=== PATIENT | female | born 1985 | race Hispanic/Latino ===

== ENCOUNTER 2020-03-12 07:26 | Outpatient (CLI) | payer OTHER, SELFPAY ==
[2020-03-12 10:28] LABS: HIV 1/2 Ab P24 Ag Result Negative (Negative)
[2020-03-12 11:08] LABS: Vitamin D 25 Hydroxy 39.3 ng/mL
[2020-03-12 12:08] LABS: Hepatitis C Virus Antibody Negative (Negative)
== END 2020-03-12 07:27 | disposition home or self-care (01) ==
PROVIDERS: PCP Family Medicine; Visit Provider Student in an Organized Health Care Education/Training Program
DX: Z34.90 Encounter for supervision of normal pregnancy, unspecified, unspecified trimester (principal); Z3A.00 Weeks of gestation of pregnancy not specified
CPT/HCPCS: 36415; 82306; 86703; 86803; G0432

== ENCOUNTER 2020-03-20 14:56 | Outpatient (CLI) | payer OTHER, SELFPAY ==
[2020-03-20 16:21] LABS: Free T4 Free Thyroxine 0.97 ng/mL (0.78-2.19)
== END 2020-03-20 14:57 | disposition home or self-care (01) ==
LOC: ANHLAB 14:57
PROVIDERS: PCP Family Medicine; Visit Provider Student in an Organized Health Care Education/Training Program
DX: E03.9 Hypothyroidism, unspecified (principal); Z34.90 Encounter for supervision of normal pregnancy, unspecified, unspecified trimester; Z3A.00 Weeks of gestation of pregnancy not specified
CPT/HCPCS: 36415; 84439; 84443

== ENCOUNTER 2020-04-10 10:01 | Outpatient (CLI) | payer OTHER, SELFPAY ==
[2020-04-10 10:23] LABS: Basophils Percent Auto 0.2 % (0.2-1.2); Eosinophils Percent Auto 0.3 % (0-4.4); Hematocrit 38.3 % (37.0-47.0); Hemoglobin 13.1 g/dL (12.0-15.0); Immature Granulocyte Absolute 0.04 K/mm3 (0.00-0.031); Immature Granulocyte Percent A 0.4 % (0-0.5); Lymphocytes Absolute Auto 2.42 K/mm3 (0.9-3.2); Lymphocytes Percent Auto 23.5 % (18.3-44.2); Mean Corpuscular HGB Conc 34.2 g/dl (32-36); Mean Corpuscular Hemoglobin 31.6 pg (26-34); Mean Corpuscular Volume 92.5 fl (80-100); Mean Platelet Volume 9.5 fl (7.4-10.4); Monocytes Absolute Auto 0.8 K/mm3 (0.1-0.6); Monocytes Percent Auto 7.3 % (2.6-8.5); Neutrophils Percent Auto 68.3 % (45.5-73.1); Platelet Count Result 291 k/mm3 (150-375); Red Blood Count 4.14 M/mm3 (4.2-5.4); Red Cell Distribution Width 13.2 % (11.5-14.5); White Blood Count 10.3 K/mm3 (4.5-10.0)
== END 2020-04-10 10:02 | disposition home or self-care (01) ==
PROVIDERS: PCP Family Medicine; Visit Provider Student in an Organized Health Care Education/Training Program
DX: Z34.02 Encounter for supervision of normal first pregnancy, second trimester (principal); Z3A.00 Weeks of gestation of pregnancy not specified
CPT/HCPCS: 36415; 85025

== ENCOUNTER 2020-05-11 14:18 | Outpatient (CLI) | payer OTHER, SELFPAY | END 2020-05-11 14:19 | disposition home or self-care (01) | LOC: ANHCOVIDVC 14:18 | PROVIDERS: PCP Family Medicine | DX: Z23 Encounter for immunization (principal) | CPT/HCPCS: 0001A; 91300 ==

== ENCOUNTER 2020-05-30 14:15 | Outpatient (CLI) | payer OTHER, SELFPAY ==
[2020-05-30 14:54] LABS: Basophils Percent Auto 0.2 % (0.2-1.2); Eosinophils Percent Auto 0.2 % (0-4.4); Hematocrit 39.7 % (37.0-47.0); Hemoglobin 13.3 g/dL (12.0-15.0); Immature Granulocyte Absolute 0.03 K/mm3 (0.00-0.031); Immature Granulocyte Percent A 0.3 % (0-0.5); Lymphocytes Absolute Auto 2.12 K/mm3 (0.9-3.2); Lymphocytes Percent Auto 21.3 % (18.3-44.2); Mean Corpuscular HGB Conc 33.5 g/dl (32-36); Mean Corpuscular Hemoglobin 31.1 pg (26-34); Mean Platelet Volume 9.7 fl (7.4-10.4); Monocytes Absolute Auto 0.8 K/mm3 (0.1-0.6); Platelet Count Result 275 k/mm3 (150-375); Red Blood Count 4.27 M/mm3 (4.2-5.4); Red Cell Distribution Width 13.2 % (11.5-14.5); White Blood Count 9.9 K/mm3 (4.5-10.0)
[2020-05-30 15:48] LABS: HIV 1/2 Ab P24 Ag Result Negative (Negative)
[2020-05-30 16:13] LABS: Free T4 Free Thyroxine 0.83 ng/mL (0.78-2.19)
[2020-05-31 07:09] LABS: Rapid Plasma Reagin Non-Reactive (NonReactive)
[2020-06-02 07:53] LABS: Triiodothyronine T3 Free 2.1 pg/mL (2.3-4.2)
== END 2020-05-30 14:16 | disposition home or self-care (01) ==
PROVIDERS: PCP Family Medicine; Visit Provider Student in an Organized Health Care Education/Training Program
DX: Z34.90 Encounter for supervision of normal pregnancy, unspecified, unspecified trimester (principal); Z3A.00 Weeks of gestation of pregnancy not specified
CPT/HCPCS: 36415; 84439; 84443; 84481; 85025; 86592; 86703; G0432

== ENCOUNTER 2020-06-01 14:07 | Outpatient (CLI) | payer OTHER, SELFPAY | END 2020-06-01 14:08 | disposition home or self-care (01) | LOC: ANHCOVIDVC 14:07 | PROVIDERS: PCP Family Medicine | DX: Z23 Encounter for immunization (principal) | CPT/HCPCS: 0002A; 91300 ==

== ENCOUNTER 2020-07-02 09:35 | Outpatient (RCR) | payer OTHER, SELFPAY ==
[2020-05-21 10:18] VITALS: BP 113/74; PULSE 85
[2020-05-25 09:18] VITALS: BP 113/68; PULSE 68
[2020-05-28 11:08] VITALS: BP 113/68; PULSE 68
[2020-06-01 11:20] VITALS: BP 111/81; PULSE 82
[2020-06-04 11:05] VITALS: BP 115/71; PULSE 82
[2020-06-08 11:16] VITALS: BP 116/74; PULSE 82
[2020-06-11 09:45] VITALS: BP 112/70; PULSE 84
[2020-06-15 11:07] VITALS: BP 124/62; PULSE 80
[2020-06-18 14:36] VITALS: BP 126/76; PULSE 77
[2020-06-22 17:48] VITALS: BP 124/78; PULSE 87
[2020-06-25 09:51] VITALS: BP 117/79; PULSE 81
[2020-06-29 10:09] VITALS: BP 113/73; BP 117/79; PULSE 85
--- NOTE | ~2020-07-02 | US_ITS ---
EXAMINATION: US OB BPP wo non-stress DATE: 06/29/2020 10:48 INDICATION: Gestational diabetes. Third trimester. TECHNIQUE: Real-time pelvic ultrasound was performed. COMPARISON: Ultrasound 06/22/2020 FINDINGS: There is a single living fetus in vertex presentation. The placenta is fundal. heart rate is 1 37 beats per minute (bpm). Biophysical profile performed by the technologist: breathing (30 sec sustained breathing in 30 minutes): 2 out of 2 movement (3 gross body movements in 30 minutes): 2 out of 2 tone (one episode of prdvivg-ejteruhux-vijtfug limb movement): 2 out of 2 Amniotic fluid pocket (2 cm): 2 out of 2 Total score: 8 out of 8 IMPRESSION: 1. Single living fetus in vertex presentation. 2. Biophysical profile 8 out of 8. Reviewed, dictated and finalized at location B.
--- NOTE | ~2020-07-02 | US_ITS ---
EXAMINATION: US OB BPP wo non-stress DATE: 06/22/2020 11:25 INDICATION: Gestational diabetes during third trimester TECHNIQUE: Real-time pelvic ultrasound was performed. The interpreting radiologist was not present fo r the study. COMPARISON: 06/15/2020 FINDINGS: There is a single living fetus in vertex presentation. The placenta is posterior. heart rate is 148 beats per minute (bpm). Biophysical profile performed by the technologist: breathing (30 sec sustained breathing in 30 minutes): 2 out of 2 movement (3 gross body movements in 30 minutes): 2 out of 2 tone (one episode of axincuc-cetlbfmyk-huybtja limb movement): 2 out of 2 Amniotic fluid pocket (2 cm): 2 out of 2 Total score: 8 out of 8 IMPRESSION: 1. Single living fetus in vertex presentation. 2. Biophysical profile 8 out of 8. Reviewed, dictated and finalized at location B.
--- NOTE | ~2020-07-02 | US_ITS ---
EXAMINATION: US OB BPP wo non-stress DATE: 06/15/2020 11:16 INDICATION: Gestational diabetes. Third trimester. TECHNIQUE: Real-time pelvic ultrasound was performed. COMPARISON: Ultrasound 06/08/2020 FINDINGS: There is a single living fetus in vertex presentation. The placenta is posterior. heart rate i s 134 beats per minute (bpm). Biophysical profile performed by the technologist: breathing (30 sec sustained breathing in 30 minutes): 2 out of 2 movement (3 gross body movements in 30 minutes): 2 out of 2 tone (one episode of zrxneng-uhkbclady-jkizmzx limb movement): 2 out of 2 Amniotic fluid pocket (2 cm): 2 out of 2 Total score: 8 out of 8 IMPRESSION: 1. Single living fetus in vertex presentation. 2. Biophysical profile 8 out of 8. Reviewed, dictated and finalized at location A.
--- NOTE | ~2020-07-02 | US_ITS ---
EXAMINATION: US OB limited w BPP EXAM DATE: 07/02/2020 11:08 INDICATION: ALBERTO and BPP - variable decel noted. 3rd trimester. TECHNIQUE: Pelvic obstetrical transabdominal sonogram was performed by a technologist. There are mu ltiple grayscale and Doppler images available for interpretation. Comparison is made to prior examina tion from 06/29/2020. FINDINGS: There is a single fetus identified in vertex presentation with a heart rate of 161 beats pe r minute. The placenta is located in the posterior position. There is no sonographic evidence of ret roplacental hemorrhage identified. The amniotic fluid index is 10.4 centimeters, which is normal. BIOPHYSICAL PROFILE (performed by the technologist) breathing (30 sec sustained breathing in 30 minutes): 2 out of 2 movement (3 gross body movements in 30 minutes): 2 out of 2 tone (one episode of njhtytc-xpgzzgxrm-vhsymim limb movement): 2 out of 2 Amniotic fluid pocket (2 cm): 2 out of 2 Total score: 8 out of 8 IMPRESSION: 1. Single fetus with heart rate of 161 bpm. 2. Normal biophysical profile score of 8 out of 8. Reviewed, dictated and finalized at location A.
--- NOTE | ~2020-07-02 | US_ITS ---
EXAMINATION: US OB BPP wo non-stress DATE: 06/08/2020 11:30 CDT INDICATION: Evaluate well-being. TECHNIQUE: Real-time transabdominal obstetric ultrasound. FINDINGS: Comparison to 06/01/2020 There is a single living fetus in vertex presentation. The placenta is fundal without placenta previ a. cardiac activity and movement is noted with a heart rate of 144 beats per minute. Biophysical profile: breathin of 2 movement: 2 of 2 tone: 2 of 2 Amniotic flud pocket: 2 of 2 Total score: 8 of 8 IMPRESSION: 1. Single living intrauterine in vertex presentation. 2: Total biophysical profile score of 8/8. Reviewed, dictated and finalized at location B.
--- NOTE | ~2020-07-02 | US_ITS ---
US OB BPP wo non-stress DATE: 06/01/2020 11:16 INDICATION: Gestational diabetes mellitus TECHNIQUE: Real-time and Doppler analysis COMPARISON: None FINDINGS: Live ortiz intrauterine gestation in longitudinal lie, vertex presentation. heart rate of 145 bpm. Fundal placenta. Subjectively normal amount of amniotic fluid. BIOPHYSICAL PROFILE reported by public address technician: breathin out of 2 movement: 2 out of 2 tone: 2 out of 2 Amniotic fluid pocket: 2 out of 2; a 4.1 cm deep amniotic fluid pocket is identified. Total score: 8 out of 8 IMPRESSION: Normal biophysical profile score of 8 out of 8 Reviewed, dictated and finalized at Location A. Reviewed, dictated and finalized at location A.
[2020-07-02 11:19] VITALS: BP 117/74; PULSE 72
== END 2020-07-06 09:08 | disposition home or self-care (01) ==
LOC: ANHOBOP 09:35
PROVIDERS: PCP Family Medicine; Visit Provider Student in an Organized Health Care Education/Training Program
DX: O24.419 Gestational diabetes mellitus in pregnancy, unspecified control (principal); Z3A.32 32 weeks gestation of pregnancy; Z3A.33 33 weeks gestation of pregnancy; Z3A.34 34 weeks gestation of pregnancy; Z3A.35 35 weeks gestation of pregnancy; Z3A.36 36 weeks gestation of pregnancy; Z3A.37 37 weeks gestation of pregnancy; Z3A.38 38 weeks gestation of pregnancy
CPT/HCPCS: 59025; 76815; 76819

== ENCOUNTER 2020-07-05 23:45 | Inpatient (IN) | payer OTHER, SELFPAY ==
[2020-07-06] VITALS (62 sets, daily range): BP systolic 86–202; BP diastolic 58–184; PULSE 54–234; RESP 16–20; TEMP 36.2–36.7; O2SAT 83–100; BMI 30.2
[2020-07-06] MEDS: LACTATED RINGERS 1,000 ML 125 ML IV CONT (00:27)
[2020-07-06 00:29] LABS: Basophils Percent Auto 0.2 % (0.2-1.2); Eosinophils Percent Auto 0.1 % (0-4.4); Hematocrit 41.3 % (37.0-47.0); Hemoglobin 14.4 g/dL (12.0-15.0); Immature Granulocyte Absolute 0.07 K/mm3 (0.00-0.031); Immature Granulocyte Percent A 0.4 % (0-0.5); Lymphocytes Absolute Auto 2.03 K/mm3 (0.9-3.2); Lymphocytes Percent Auto 11.7 % (18.3-44.2); Mean Corpuscular HGB Conc 34.9 g/dl (32-36); Mean Corpuscular Hemoglobin 31.8 pg (26-34); Mean Corpuscular Volume 91.2 fl (80-100); Mean Platelet Volume 9.8 fl (7.4-10.4); Monocytes Absolute Auto 1.3 K/mm3 (0.1-0.6); Monocytes Percent Auto 7.3 % (2.6-8.5); Neutrophils Absolute Auto 13.9 K/mm3 (1.3-6.7); Neutrophils Percent Auto 80.3 % (45.5-73.1); Platelet Count Result 272 k/mm3 (150-375); Red Blood Count 4.53 M/mm3 (4.2-5.4); Red Cell Distribution Width 12.8 % (11.5-14.5); White Blood Count 17.3 K/mm3 (4.5-10.0)
--- NOTE | 2020-07-06 00:37 | LDADM ---
This patient, Dana Hale, was admitted to Labor/Delivery/Recovery 109 on 07/05/20 at 23:45. Plans for labor, pain management and were discussed with patient. Patient/family oriented to hospital policies and general routines including ID bracelet, bed and alarms, visiting hours, pain management, procedures, bathroom and other care routines, personal items, smoking policy, room service/diet and guest tray routines, security routines, and visiting hours. Patient/Family are encouraged to report perceived risks to care and to ask questions if they do not understand what they are told or what they should do. See OBIX for further documentation.
--- NOTE | 2020-07-06 01:15 | WPDANESEPP ---
Anes - Eval Pre Procedure Procedure: labor epidural Date/Time: 07/06/20 01:15 Surgeon: Mayank Preop Diagnosis: Labor pain Pre Op Diagnosis: CTX Patient Data Age: 35 Gender: F Height: 1.63 m Weight: 80 kg Last Vital Signs Temp 36.4 C L 07/06/20 00:45 Pulse 74 07/06/20 01:13 BP 120/72 07/06/20 01:13 Pulse Ox 94 07/06/20 01:10 Allergies Allergy/AdvReac Type Severity Reaction Status Date / Time chlorpheniramine AdvReac Severe severe Verified 07/04/20 12:03 [Pedia Relief] lethargy dextromethorphan AdvReac Severe severe Verified 07/04/20 12:03 [Children's Sudafed PE Cough] lethargy pseudoephedrine AdvReac Severe severe Verified 07/04/20 12:03 lethargy phenylephrine AdvReac Unknown severe Verified 07/04/20 12:03 [Children's Sudafed PE Cough] lethargy Home Medications Medication Instructions Recorded Confirmed Type FreeStyle Mike 2 Sensor #2 ea NS 02/24/20 02/24/20 Rx levothyroxine 75 mcg tablet 75 mcg PO DAILY #90 tablet 05/01/20 06/18/20 Rx vitamin no.39-ptfi-VL-dha 1 cap PO DAILY #30 cap 05/01/20 06/18/20 Rx 28 mg iron-1 mg-200 mg capsule insulin aspart U-100 100 unit/mL See Rx Instructions .ROUTE 05/30/20 06/18/20 History subcutaneous cartridge .COMPLEX ml insulin glargine 100 unit/mL 10 unit SUBCUT HS ml 05/30/20 06/18/20 History subcutaneous solution ondansetron HCl 4 mg tablet 4 mg PO Q8H #30 tablet 06/18/20 06/18/20 Rx alcohol swabs See Rx Instructions TOPICAL 06/19/20 06/19/20 Rx .COMPLEX #200 ea insulin syringe-needle U-100 1 mL #100 ea 06/19/20 06/19/20 Rx 30 gauge x 1/2 metformin 1,000 mg tablet 1,000 mg PO BID #60 tablet 06/20/20 06/20/20 Rx Laboratory Tests 07/06/20 07/06/20 00:20 00:20 WBC 17.3 K/mm3 H K/mm3 (4.5-10.0) RBC 4.53 M/mm3 M/mm3 (4.2-5.4) Hgb 14.4 g/dL g/dL (12.0-15.0) Hct 41.3 % % (37.0-47.0) MCV 91.2 fl fl (80-100) MCH 31.8 pg pg (26-34) MCHC 34.9 g/dl g/dl (32-36) RDW 12.8 % % (11.5-14.5) Plt Count 272 k/mm3 k/mm3 (150-375) MPV 9.8 fl fl (7.4-10.4) Immature Gran % (Auto) 0.4 % % (0-0.5) Neut % (Auto) 80.3 % H % (45.5-73.1) Lymph % (Auto) 11.7 % L % (18.3-44.2) Bryan % (Auto) 7.3 % % (2.6-8.5) Eos % (Auto) 0.1 % % (0-4.4) Baso % (Auto) 0.2 % % (0.2-1.2) Lymph # (Auto) 2.03 K/mm3 K/mm3 (0.9-3.2) Bryan # (Auto) 1.3 K/mm3 H K/mm3 (0.1-0.6) Eos # (Auto) 0.0 K/mm3 K/mm3 (0-0.3) Baso # (Auto) 0.0 K/mm3 K/mm3 (0.0-0.1) Abs Immat Gran (auto) 0.07 K/mm3 H K/mm3 (0.00-0.031) Absolute Neuts (auto) 13.9 K/mm3 H K/mm3 (1.3-6.7) Absolute Nucleated RBC 0.0 K/mm3 K/mm3 (0.0-0.012) Nucleated RBC % 0.0 % % (0.0-0.2) RPR Pending Patient hx anesthesia problems: none Family hx anesthesia problems: none PMFSH Past Medical History Medical History Artificial insemination 5.20.20 failed, 6.29.20 failed Chronic thoracic back pain 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 No fracture. Cord: normal caliber,contour and signal intensity Hypothyroid Infertility, female Yris Neil M.D. [email or web address] [phone] [place], [place] Polycystic ovarian syndrome Prediabetes Surgical History Surgical History [place] teeth extracted 2000 Family History Family History Grandparent Family history of malignant neoplasm of bone Family history of malignant neoplasm of breast Other Depression Hypertension Social History Social History Smoking status: Never smoker
--- NOTE | 2020-07-06 01:18 | WPDANESEFPP ---
Anes - Eval Final PreProcedure Day of Procedure 07/06/20 01:18 Patient weight: overweight Heart: regular rate and rhythm Lungs: clear to auscultation and normal air movement Airway: Mallampati scale class II Neurological: alert and oriented ASA classification: III Anesthetic plan: proceed Anesthesia type and monitoring: regional epidural and standard monitoring Informed Consent: The patient's anesthetic plan and its attendant risks and benefits were discussed with the patient/family/POA. Questions were solicited and answers provided to the satisfaction of the patient/family/POA.
--- NOTE | 2020-07-06 03:53 | PM.IMHP ---
H&P: HPI History of Present Illness Date/Time: 07/06/20 03:53 The patient is a 35-year-old who presented to labor and delivery just before midnight on 07/05/2020 with complaints of contractions. Patient reported onset of contractions at approximately 4:00 a.m. the previous morning. Contractions, however, intensified at approximately 10:00 p.m. Upon arrival to labor and delivery, patient was noted to be 8 cm dilated. Decision was made to admit in active labor. Patient has a history of gestational diabetes and has been well controlled with Metformin and insulin throughout the . Chief Complaint: Active labor Review of Systems Review of Systems: All systems reviewed & are unremarkable except as noted in HPI and below Constitutional: Constitutional: Reports as per HPI, Reports no additional constitutional complaints, Denies chills, Denies fever(s), Denies headache(s) and Denies night sweats Eyes: Eyes: Reports as per HPI and Reports no additional eye complaints ENT: Reports system reviewed and no additional complaints, except as documented, Reports as per HPI, Reports Normal hearing present and Denies headache(s) Cardiovascular: Cardiovascular: Reports as per HPI, Reports no additional cardiovascular complaints, Denies chest pain and Denies dyspnea Respiratory: Respiratory: Reports as per HPI, Reports no additional respiratory complaints, Denies cough and Denies dyspnea Gastrointestinal: Gastrointestinal: Reports as per HPI, Reports no additional gastrointestinal complaints, Denies abdominal pain, Denies change in bowel habits, Denies change in stool character, Denies nausea and Denies vomiting Genitourinary: Genitourinary: Reports no additional female genitourinary complaints, Reports as per HPI, Denies abnormal vaginal bleeding, Denies genital lesions, Denies hot flashes, Denies dyspareunia, Denies pelvic pain, Denies sexual dysfunction, Denies urinary incontinence, Denies vaginal discharge, Denies vaginal dryness and Denies vaginal odor Musculoskeletal: Musculoskeletal: Reports no additional musculoskeletal complaints and Reports as per HPI Integumentary/Breasts: Skin/Breast: Reports system reviewed and no additional complaints, except as docu, Reports as per HPI, Denies breast pain and Denies nipple discharge Neurologic: Reports system reviewed and no additional complaints, except as documented, Reports as per HPI, Reports Normal hearing present and Denies headache(s) Psychiatric: Psychiatric: Reports no additional psychiatric complaints, Reports as per HPI, Denies anxiety and Denies depression Endocrine: Endocrine: Reports no additional endocrine complaints and Reports as per HPI Hematologic/Lymphatic: Hematologic/Lymphatic: Reports no additional hematologic/lymphatic complaints and Reports as per HPI Allergic/Immunologic: Allergic/Immunologic: Reports no additional allergic/immunologic complaints and Reports as per HPI [facility] Past Medical History Medical History Artificial insemination 5..20 failed, 6.29.20 failed Chronic thoracic back pain 2015 job: [employer] tx: physical therapy MRI 05.28.15 : no significant disc abnormality,spinal stenosis or foraminal stenosis. No fracture. Cord: normal caliber,contour and signal intensity Hypothyroid Infertility, female Yris Neil M.D. [email or web address] [phone] [place], [place] Polycystic ovarian syndrome Prediabetes Surgical History Surgical History [place] teeth extracted 2000 Family History Family History Grandparent Family history of malignant neoplasm of bone Family history of malignant neoplasm of breast Other Depression Hypertension Social History Social History Smoking status: Never smoker Alcohol inta
[2020-07-06] MEDS: OXYTOCIN 30 UNITS/NS 500 ML 30 UNITS/500 ML BAG 125 UNITS IV CONT (04:04)
--- NOTE | 2020-07-06 04:07 | PM.OBPRVD ---
OB - Delivery Note Procedure Delivery date: 07/06/20 Procedure: The patient is a 35-year-old G1 now P1001 who presented to labor and delivery just before midnight on 07/05/2020 with complaints of contractions. Patient reported onset of contractions at approximately 4:00 a.m. the previous morning. Contractions, however, intensified at approximately 10:00 p.m. Upon arrival to labor and delivery, patient was noted to be 8 cm dilated. Patient was admitted in active labor. Patient requested an epidural for pain management which was placed without difficulty. Patient made progress on her own and was noted to be fully dilated at 3:13 a.m. Patient experienced spontaneous rupture of membranes at 3:17 a.m. Clear amniotic fluid was noted. Patient was prepped and draped for delivery. With a single push, patient delivered head atraumatically without difficulty in LUZ presentation at 3:27 a.m. A compound presentation was noted as a hand delivered alongside face. Occiput restituted to maternal right side. The infant's neck, shoulders, and rest of body delivered spontaneously without difficulty. The 's nose and mouth were suctioned with bulb suction. The infant was placed on maternal abdomen where care was assumed by awaiting nursing staff. The was crying spontaneously. Delayed cord clamping was performed for approximately 60 seconds. The cord was clamped and cut. A segment of cord was collected for cord gases. The placenta was delivered spontaneously and intact. Uterine fundus was noted to be firm with massage. Straight catheterization was performed with approximately 20 cc of clear urine obtained. On inspection, a superficial left vaginal wall laceration was noted. This laceration was repaired with 3-0 vicryl in the usual fashion. Excellent hemostasis was noted. Estimated blood loss for entire delivery was 25 cc. The was a live-born female infant, Apgars 9 in 9, weighing 6 lbs. Both mother and baby doing well at end of delivery. events: Gestational Diabetes Intrapartal events: None Delivery monitor: external FHT and external uterine Route of delivery: Laceration Description: Superficial (left vaginal wall) Delivery repair: vicryl (3-0) Specimen: Yes (placenta and cord, cord blood, and cord gases) Quantitative Blood Loss (ml): 25 Anesthesia type: Epidural Disposition: floor Complications: No immediate complications Baby Date of : 07/06/20 Time of : 03:27 Weeks of gestation at delivery: 38 (38.4) Infant gender: Female Weight (pounds): 6 Weight (ounces): 0 presentation: compound ( hand delivered alongside of face) position: Right Occiput Anterior Placenta delivery description: Spontaneous cord vessel description: 3 Vessels and Delayed Cord Clamping (60 seconds) score one minute: 9 score five minutes: 9
--- NOTE | 2020-07-06 06:22 | OBPPTRN ---
Patient transferred to post room # 279 via wheelchair. Support person present. Oriented to unit, room, information board, rooming in, admission packet and security measures. Patient verbalizes understanding.
[2020-07-06 06:52] LABS: Rapid Plasma Reagin Non-Reactive (NonReactive)
--- NOTE | 2020-07-06 08:00 | PC.NURSE ---
0800 Mother called out for assist with feeding. Consulted with patient, mother reports fed well first feeding. Reviewed infant feeding cues, frequencies, duration of feedings, feeding elimination flow sheet, and signs of adequate intake. Demonstrated stimulation techniques to wake for feeding. Assisted with to breast. Reviewed positioning/alignment in cross cradle, holding breast in U hold and guided asymmetrical latch on. was able to latch within a few attempts. Infant nursed eagerly, with steady draws and frequent swallowing noted. Reviewed signs of a correct latch, effective nursing and suck swallow ratio. was able to maintain latch. Mother reported tenderness at times, had slipped to shallow latch. Demonstrated how to adjust latch more deeply while feeding. Mother quickly reports she can feel infant is latched more deeply and has minimal tenderness. Nipple care reviewed Suggested to stimulate while feeding to keep infant awake and nursing effectively for increased stimulation, increased intake and to assist with maintaining deep latch. Instructed feeding should be initiated three hours from start of last feeding or if feeding cues are noted before. Mother voiced understanding of information shared.
--- NOTE | 2020-07-06 09:00 | PC.NURSE ---
Pt monitors her blood sugar on her own Freestyle monitor. Breakfast post prandial BS was 106.
[2020-07-06] MEDS: MULTIVIT/MIN/PREN/FOL AC/IRON TABLET 1 TAB PO (11:03)
--- NOTE | 2020-07-06 13:23 | PC.NURSE ---
Pt monitors her blood sugar on her own Freestyle monitor. Lunch post prandial BS was 151.
--- NOTE | 2020-07-06 14:08 | PC.NURSE ---
1150 Demonstrated stimulation techniques to wake for feeding. Assisted with infant to breast. Reviewed positioning/alignment in cross cradle and football, holding breast in C hold and guided asymmetrical latch on. was sleepy and unable to latch. Attempt for 15 minutes suggested skin to skin and attempt again in 30 min. Mother mother states she will have lunch then call out
--- NOTE | 2020-07-06 14:09 | PC.NURSE ---
1252 Mother called out for assist with feeding. Infant remains sleepy. Parents report they have attempted several times and infant does not wake to nurse. Reviewed feeding freq and timing from last feeding. Suggested a small amount of glucose to tongue to entice to feed. FOB will use glucose on finger. Infant sleepy with some feeding cues noted. Demonstrated stimulation techniques to wake for feeding. Assisted with infant to breast. Reviewed positioning/alignment in cross cradle, holding breast in U hold and guided asymmetrical latch on. Infant was able to latch within a few attempts. nursed sleepily with bursts of steady draws and occasional swallowing noted. Reviewed signs of a correct latch, effective nursing and suck swallow ratio. was able to maintain latch. Advised to continually stimulate while feeding to keep infant awake and effectively feeding. Mother reported tenderness at times, infant had slipped to shallow latch. Demonstrated how to adjust latch more deeply while feeding. Mother quickly reports she can feel is latched more deeply and has minimal tenderness. 5-7 minutes of feeding observed.
--- NOTE | 2020-07-06 15:01 | PC.NURSE ---
Pt states she will take her own levothyroxine 75 mcg. She has medication with her in her own pill pack.
[2020-07-07 05:25] LABS: Hemoglobin 13.5 g/dL (12.0-15.0)
--- NOTE | 2020-07-07 06:14 | PC.NURSE ---
Pt is has a freestyle meter and checks her own blood sugar. 07-06-20 at 1800 - BS 173 07-06-20 at 2345 - BS 96 07-07-20 fasting BS - 58 (asymptomatic)
[2020-07-07 09:00] VITALS: BP 115/82; PULSE 82; RESP 18; TEMP 36.8
[2020-07-07] MEDS: DOCUSATE SODIUM 100 MG CAPSULE PO (09:05)
[2020-07-07] MEDS: MULTIVIT/MIN/PREN/FOL AC/IRON TABLET 1 TAB PO (09:05)
--- NOTE | 2020-07-07 09:33 | WPDANLDPN2 ---
Anes-Prog Note L&D Date/Time: 07/07/20 09:33 Comfortable throughout: labor and delivery Neuraxial method: epidural Epidural/Spinal procedure site: clean & non-tender Neuro status: Neuro function grossly intact. Cardiovascular status: normal Respiratory status: normal Airway patency: baseline Mental status: baseline Post-Op hydration status: normal Vital Signs: Last Vital Signs Temp 36.7 C 07/06/20 19:40 Pulse 76 07/06/20 19:40 Resp 16 07/06/20 19:40 BP 113/72 07/06/20 19:40 Pulse Ox 99 07/06/20 19:40 Pain score (VAS): 0/10. Patient up ambulating at bedside during assessment, appears comfortable. RN at bedside. Post-procedural complaints: none Patient feedback: Patient satisfied with anesthetic care.
--- NOTE | 2020-07-07 10:12 | PM.OBPNVD ---
OB - PN: Subj Subjective Date/time seen: 07/07/20 10:12 Patient doing well this AM. Reports mild vaginal soreness. Denies any significant pain. Minimal lochia. Denies any headache, chest pain, SOB, N/V. One episode of hypoglycemia overnight. Rest of values either WNL or slightly elevated, no higher than 160s. OB - PN: Obj Data Labs CBC & Chem 7: 07/07/20 05:04 Labs: Laboratory Results - last 24 hr 07/07/20 05:04 Hgb 13.5 Hct 41.0 OB - PN A/P Assessment and Plan (1) Normal spontaneous vaginal delivery: Code(s): O80 - Encounter for full-term uncomplicated delivery Status: Acute Assessment and Plan: PPD#1 doing well continue routine care pt requesting dc today, which I think is reasonable discharge home in stable condition emergency precautions reviewed f/u in office in 4-6 weeks for visit, however, will contact office within 1 week to report glucose values (2) Gestational diabetes: Code(s): O24.419 - Gestational diabetes mellitus in , unspecified control Status: Acute Assessment and Plan: pt with GDM d/c'd all insulin and Metformin one episode of hypoglycemia overnight rest of values WNL or slightly elevated dietary options in hospital are inconsistent with patient's usual dietary habits advised to monitor glucose measurements at home upon discharge notify office if values significantly out of range, parameters discussed Time Spent With Patient Time: Total time spent is greater than 50% in coordination of care (as documented) at patient's floor/unit and/or counseling patient: Exam Const: General: cooperative, healthy appearing, comfortable and no acute distress GI: Inspection: non-distended GI Palp: Yes Soft to palpation and No Tenderness to palpation present (GI) Other: fundus firm below umbilicus Extrem: Right lower extremity: no edema Left lower extremity: no edema Other: no calf tenderness
--- NOTE | 2020-07-07 10:19 | P.DS_ITS ---
DS: Admitting Diagnosis Admitting Diagnosis Admitting Diagnosis: Active labor OB - DS: Summary OB Procedures : None OB Procedures Intrapartum: Spontaneous Vag Delivery OB Procedures: : None Time Spent with Patient Time attestation: Total time spent providing and/or coordinating discharge services: DS: Data Data Completed and Pending Pending studies at discharge: Pending at discharge 07/06/20 03:31 Surgical [PTH] Routine Labs on day of discharge: Labs from last 24 hours 07/07/20 05:04 Hgb 13.5 Hct 41.0 Discharge Plan Discharge Attending physician on discharge: Azul Talley Discharging Clinician: Azul Talley Anticipated Discharge Date/Time: 07/07/20 10:19 Patient Disposition: Home, Self-Care Activity: as tolerated and pelvic rest Diet: regular Discharge Instructions: Call office ([phone]) to schedule a visit in 4-6 weeks. You may take Ibuprofen 600mg every 6 hours as needed for pain. Pain medication may make you constipated. It may be helpful to take an swcs-bdx-[id number] stool softener, such as Colace and/or Senokot, along with the pain medication to help lessen constipation. Call office or go to ED for pain not controlled with medication, headache, chest pain, shortness of breath, fever, chills, persistent nausea or vomiting, severe abdominal pain, heavy vaginal bleeding >2 pads/hour, foul vaginal discharge or odor, or problems with your breasts. Patient Instructions: Antibiotic Form Stand Alone Forms: General Discharge Information Follow-up/Referrals: Azul Talley MD [Physician] - Discharge Medications: Continued levothyroxine 75 mcg tablet 75 mcg PO DAILY Qty: 90 RF: 0 TRANSVERSE ABDOMINAL MUSCLE SURGEON-PNV-DHA 28 mg iron- 1 mg-200 mg capsule 1 cap PO DAILY Qty: 30 RF: 0 Discontinued alcohol swabs [Alcohol Prep Pads] Pads, Medicated See Rx Instructions topical .COMPLEX Qty: 200 RF: 0 insulin aspart U-100 [Novolog PenFill U-100 Insulin] 100 unit/mL cartridge See Rx Instructions .ROUTE .COMPLEX RF: 0 Lantus U-100 Insulin 100 unit/mL solution 10 unit subcut HS RF: 0 metformin 1,000 mg tablet 1,000 mg PO BID Qty: 60 RF: 1 ondansetron HCl [Zofran] 4 mg tablet 4 mg PO Q8H Qty: 30 RF: 0 No Action (DME) insulin syringe-needle U-100 [BD Insulin Syringe Ultra-Fine] 1 mL 30 gauge x 1/2 syringe See Rx Instructions .ROUTE .MEDSUPPLY Qty: 100 RF: 0 (DME) FreeStyle Mike 2 Sensor Kit See Rx Instructions .ROUTE .MEDSUPPLY Qty: 2 RF: 5 Date of admission: 07/05/20 23:45 Primary Care Provider: Camryn Hale Admitting Provider: Azul Talley Attending physician on admission: Azul Talley Condition: Stable
--- NOTE | 2020-07-07 19:18 | PC.NURSE ---
1300 pt reports that she and FOB viewed the discharge DVD.
[2020-07-09 10:57] VITALS: BP 123/87; PULSE 80; RESP 20; TEMP 37.6; O2SAT 98
== END 2020-07-07 14:52 | disposition home or self-care (01) | DRG 806 ==
LOC: ANHLDR 07-06 03:54 → ANHOB2 07-06 06:28
PROVIDERS: Admitting Provider Obstetrics & Gynecology; PCP Family Medicine; Visit Provider Student in an Organized Health Care Education/Training Program
DX: O24.424 Gestational diabetes mellitus in childbirth, insulin controlled (principal); O71.4 Obstetric high vaginal laceration alone; Z37.0 Single live birth; O32.6XX0 Maternal care for compound presentation, not applicable or unspecified; Z3A.38 38 weeks gestation of pregnancy
CPT/HCPCS: 36415; 85014; 85018; 85025; 86592; 86850; 86900; 86901; 88307; A9270; J2590; J2795; J7120

== ENCOUNTER 2020-08-13 07:20 | Outpatient (CLI) | payer OTHER, SELFPAY ==
[2020-08-13 08:10] LABS: Glucose 2 Hour PP 104 mg/dL (>=155); Hemoglobin A1C 5.5 % (<5.7)
[2020-08-13 09:40] LABS: Glucose 2 Hour PP 185 mg/dL (>=155)
[2020-08-13 10:50] LABS: Glucose 2 Hour PP 93 mg/dL (>=155)
[2020-08-13 11:32] LABS: Albumin Level 4.1 g/dL (3.5-5.1); Bilirubin,Total 0.2 mg/dL (0.2-1.3); Blood Urea Nitrogen 16 mg/dL (7-17); Carbon Dioxide 28 mmol/L (22-30); Cholesterol 214 mg/dL (0-200); Estimated Glomerular Filt Rate > 60
[2020-08-13 11:40] LABS: LDL Cholesterol Direct 108 mg/dL
[2020-08-13 11:46] LABS: Alanine Aminotransferase 40 U/L (4-35); Alkaline Phosphatase 67 U/L (38-126); Anion Gap 7 mmol/L (8-16); Aspartate Amino Transferase 38 U/L (14-36); Calcium 8.9 mg/dL (8.4-10.2); Chloride 106 mmol/L (98-107); Glucose 104 mg/dL (65-105); HDL Direct 57 mg/dL; Potassium 4.2 mmol/L (3.4-5.0); Sodium 141 mmol/L (137-145); Triglycerides 69 mg/dL (<150)
[2020-08-13 12:00] LABS: Thyroid Stimulating Hormone 0.792 uIU/mL (0.465-4.680)
== END 2020-08-13 07:21 | disposition home or self-care (01) ==
PROVIDERS: PCP Family Medicine; Referring Provider Family Medicine; Visit Provider Student in an Organized Health Care Education/Training Program
DX: O24.419 Gestational diabetes mellitus in pregnancy, unspecified control (principal); E03.9 Hypothyroidism, unspecified; E28.2 Polycystic ovarian syndrome; Z79.899 Other long term (current) drug therapy; Z3A.00 Weeks of gestation of pregnancy not specified
CPT/HCPCS: 36415; 80053; 80061; 82607; 82947; 83036; 84443

== ENCOUNTER 2022-07-10 10:08 | Outpatient (CLI) | payer OTHER, SELFPAY ==
[2022-07-10 13:15] LABS: Beta HCG Quantitative 84.53 mIU/ML
== END 2022-07-10 10:09 | disposition home or self-care (01) ==
LOC: ANHGOSHLAB 10:09
PROVIDERS: PCP Family Medicine; Visit Provider Family Medicine
DX: Z34.90 Encounter for supervision of normal pregnancy, unspecified, unspecified trimester (principal); Z86.32 Personal history of gestational diabetes; Z3A.00 Weeks of gestation of pregnancy not specified
CPT/HCPCS: 36415; 83036; 84702

== ENCOUNTER 2023-02-20 09:52 | Outpatient (RCR) | payer OTHER, SELFPAY ==
[2023-01-30 11:46] VITALS: BP 133/77; PULSE 83
[2023-02-20 10:18] VITALS: BP 119/77; PULSE 761
== END 2023-04-30 23:59 | disposition home or self-care (01) ==
LOC: ANHOBOP 09:52
PROVIDERS: PCP Family Medicine; Visit Provider Obstetrics & Gynecology
DX: O24.419 Gestational diabetes mellitus in pregnancy, unspecified control (principal); Z3A.33 33 weeks gestation of pregnancy; O36.5930 Maternal care for other known or suspected poor fetal growth, third trimester, not applicable or unspecified; Z3A.36 36 weeks gestation of pregnancy
CPT/HCPCS: 59025

== ENCOUNTER 2023-02-25 19:51 | Inpatient (IN) | payer OTHER, SELFPAY ==
[2023-02-25] VITALS (9 sets, daily range): BP systolic 122–136; BP diastolic 71–89; PULSE 73–92; TEMP 36.6; BMI 33.0
--- OUTSIDE RECORDS SUMMARY | 2023-02-25 20:02 | XMS_ITS | Patient Health Record ---
Author Name Unknown Organization [facility] Augusto torres Billing Info Address [address] [place] [id number] Care Team Providers Care [facility] Dentist Name Role Phone CRISTINA JOSHI Unavailable [phone] CÉSAR LANIER Unavailable [phone] MORALES DAMICO Unavailable [phone] Allergies Allergen (clinical drug ingredient) Drug/Non Drug Allergy documented on EMR Reaction Allergy Type Onset Date Status pseudoephedrine Pseudoephedrine Unknown Drug Allergy Active Reason For Referral Reason T2DM Referring Provider First Name Jessenia Referring Provider Last Name Lex Referring Provider Speciality OB - Gynec ology Referred Organization [id number] [facility] Referred Provider CRISTINA JOSHI Referred Address [address] [facility] [address], [place],[address], Referred Provider Specialty OB - Gynecol ogy General Notes JOHAN FULLER 09/06 08:29:44 AM CDT > need more ins info then will fwd to GDM nurse for review. Referral Priority Routine Medications Medication SIG (Take, Route, Frequency, Duration) Notes Start Date End Date Status HumuLIN N KwikPen 100 UNIT/ML 18 units Subcutaneous Daily at bedtime for 30 days DEA MCKEON 10/17/2022 01:23:49 PM CDT
--- NOTE | 2023-02-25 20:42 | LDADM ---
This patient, Dana Hale, was admitted to Labor/Delivery/Recovery 102 on 02/25/23 at 19:51. Plans for labor, pain management and were discussed with patient. Patient/family oriented to hospital policies and general routines including ID bracelet, bed and alarms, visiting hours, pain management, procedures, bathroom and other care routines, personal items, smoking policy, room service/diet and guest tray routines, security routines, and visiting hours. Patient/Family are encouraged to report perceived risks to care and to ask questions if they do not understand what they are told or what they should do. See OBIX for further documentation.
[2023-02-25 20:51] LABS: Basophils Percent Auto 0.2 % (0.2-1.2); Eosinophils Percent Auto 0.5 % (0-4.4); Hematocrit 37.5 % (37.0-47.0); Hemoglobin 12.6 g/dL (12.0-15.0); Immature Granulocyte Absolute 0.03 K/mm3 (0.00-0.031); Immature Granulocyte Percent A 0.4 % (0-0.5); Lymphocytes Absolute Auto 2.24 K/mm3 (0.9-3.2); Lymphocytes Percent Auto 26.6 % (18.3-44.2); Mean Corpuscular HGB Conc 33.6 g/dl (32-36); Mean Corpuscular Hemoglobin 31.5 pg (26-34); Mean Corpuscular Volume 93.8 fl (80-100); Mean Platelet Volume 10.6 fl (7.4-10.4); Monocytes Absolute Auto 0.8 K/mm3 (0.1-0.6); Monocytes Percent Auto 8.9 % (2.6-8.5); Neutrophils Absolute Auto 5.4 K/mm3 (1.3-6.7); Neutrophils Percent Auto 63.4 % (45.5-73.1); Platelet Count Result 229 k/mm3 (150-375); Red Cell Distribution Width 13.3 % (11.5-14.5); White Blood Count 8.4 K/mm3 (4.5-10.0)
[2023-02-25] MEDS: AMPICILLIN 2 GM/NS 100 ML 2 GM/100 ML BAG IVPB (20:57)
[2023-02-25] MEDS: LACTATED RINGERS 1,000 ML 125 ML IV CONT (20:58)
[2023-02-25] MEDS: DINOPROSTONE 10 MG VAG INSERT VAGINAL (21:15)
[2023-02-25 21:45] LABS: Rubella IgG Antibody > 110.0 IU/ML
[2023-02-25 21:46] LABS: HIV 1/2 Ab P24 Ag Result Negative (Negative); Hepatitis B Surface Antigen Negative (Negative)
[2023-02-25] MEDS: INSULIN HUMAN NPH (*BKC) 100 UNITS/ML 8 UNITS SUB-Q (21:54)
[2023-02-25 22:45] LABS: Glucose Point of Care 120 mg/dl (65-105)
[2023-02-26] VITALS (164 sets, daily range): BP systolic 63–163; BP diastolic 41–126; PULSE 65–287; RESP 18; TEMP 36.4–38.6; O2SAT 92–100
[2023-02-26] MEDS: AMPICILLIN 1 GM/NS 50 ML 1 GM/50 ML BAG IVPB ×4 (01:03→13:12)
--- NOTE | 2023-02-26 02:09 | PC.NURSE ---
at 0200 patient BG from the continuous glucose monitoring device was 100
--- NOTE | 2023-02-26 04:00 | PC.NURSE ---
Patient blood glucose at this time per her continuous monitor was 99
--- NOTE | 2023-02-26 06:53 | PC.NURSE ---
Patient checked blood glucose level at 0600 per her personal monitor. BG 95.
--- NOTE | 2023-02-26 07:17 | WPDANESEPP ---
Anes - Eval Pre Procedure Procedure: Labor epidural Date/Time: 02/26/23 07:17 Surgeon: Reyna Preop Diagnosis: Abdominal pain with contractions Pre Op Diagnosis: IOL Patient Data Age: 37 Gender: F Height: 1.63 m Weight: 87.2 kg Last Vital Signs Temp 98 F 02/26/23 04:00 Pulse 79 02/26/23 04:06 BP 139/99 H 02/26/23 04:06 O2 Del Method Room Air 02/26/23 06:15 Allergies Allergy/AdvReac Type Severity Reaction Status Date / Time chlorpheniramine AdvReac Severe severe Verified 02/09/23 13:03 [Pedia Relief] lethargy dextromethorphan AdvReac Severe severe Verified 02/09/23 13:03 [Children's Sudafed PE Cough] lethargy pseudoephedrine AdvReac Severe severe Verified 02/09/23 13:03 lethargy phenylephrine AdvReac Unknown severe Verified 02/09/23 13:03 [Children's Sudafed PE Cough] lethargy Home Medications Medication Instructions Recorded Confirmed Type levothyroxine 75 mcg tablet 75 mcg PO DAILY #90 tabs 08/03/20 02/09/23 Rx vitamin no.[id number] 1 cap PO DAILY #90 caps 08/03/20 02/09/23 Rx 28 mg iron-1 mg-200 mg capsule (ASSOCIATE PROPERTY MANAGER-PNV-DHA) blood-glucose sensor (FreeStyle #4 ea 11/23/22 02/09/23 Rx Mike 3 Sensor device) Breast Pump #1 ea 01/26/23 02/09/23 Rx aspirin 81 mg capsule 162 mg PO DAILY 01/30/23 02/09/23 History cholecalciferol (vitamin D3) 25 25 mcg PO DAILY 01/30/23 02/09/23 History mcg (1,000 unit) capsule (Vitamin D3) insulin NPH isoph U-100 human 100 15 unit subcut BID 01/30/23 02/09/23 History unit/mL (3 mL) subcutaneous pen Laboratory Tests 02/25/23 02/25/23 20:41 21:55 WBC 8.4 K/mm3 (4.5-10.0) RBC 4.00 L M/mm3 (4.2-5.4) Hgb 12.6 g/dL (12.0-15.0) Hct 37.5 % (37.0-47.0) MCV 93.8 fl (80-100) MCH 31.5 pg (26-34) MCHC 33.6 g/dl (32-36) RDW 13.3 % (11.5-14.5) Plt Count 229 k/mm3 (150-375) MPV 10.6 H fl (7.4-10.4) Immature Gran % (Auto) 0.4 % (0-0.5) Neut % (Auto) 63.4 % (45.5-73.1) Lymph % (Auto) 26.6 % (18.3-44.2) [place] % (Auto) 8.9 H % (2.6-8.5) Eos % (Auto) 0.5 % (0-4.4) Baso % (Auto) 0.2 % (0.2-1.2) Lymph # (Auto) 2.24 K/mm3 (0.9-3.2) [place] # (Auto) 0.8 H K/mm3 (0.1-0.6) Eos # (Auto) 0.0 K/mm3 (0-0.3) Baso # (Auto) 0.0 K/mm3 (0.0-0.1) Abs Immat Gran (auto) 0.03 K/mm3 (0.00-0.031) Absolute Neuts (auto) 5.4 K/mm3 (1.3-6.7) Absolute Nucleated RBC 0.0 K/mm3 (0.0-0.012) Nucleated RBC % 0.0 % (0.0-0.2) POC Capillary Glucose 120 H mg/dl (65-105) RPR Pending Hep Bs Antigen Negative (Negative) HIV 1&2 Ab/P24 Ag 4thGn Negative (Negative) Rubella IgG Antibody > 110.0 IU/ML (10 - ) Blood Type O Positive Antibody Screen Negative : gestational age HCG: positive Patient hx anesthesia problems: none Family hx anesthesia problems: none Results Review: All pre-operative results and documents have been reviewed as part of the pre-operative evaluation. [facility] Past Medical History Medical History Artificial insemination 5.20.20 failed, 6.29.20 failed Chronic thoracic back pain 2015 job: senior [employer] tx: physical therapy MRI 16 : no significant disc abnormality,spinal stenosis or foraminal stenosis. No fracture. Cord: normal caliber,contour and signal intensity Gestational diabetes Hypothyroid Infertility, female Yris Neil M.D. [email or web address] [phone] [place], [place] Normal spontaneous vaginal delivery Polycystic ovarian syndrome Prediabetes Surgical History Surgical History [place] teeth extracted 2000 Family History Family History
[2023-02-26] MEDS: OXYTOCIN 30 UNITS/NS 500 ML 30 UNITS/500 ML BAG IV CONT (08:06)
[2023-02-26] MEDS: LACTATED RINGERS 1,000 ML 125 ML IV CONT (09:40)
[2023-02-26] MEDS: PHENYLEPHRINE 1,000 MCG/10 ML SYRINGE 100 MCG IV PUSH (09:59)
--- NOTE | 2023-02-26 10:23 | PC.NURSE ---
Patient checked blood glucose level at 1000 per her personal monitor. BG 126.
[2023-02-26] MEDS: SODIUM CHLORIDE 0.9% IV 300 ML 600 ML I-UTERINE (12:16)
--- NOTE | 2023-02-26 12:27 | PM.IMHP ---
H&P: HPI History of Present Illness Date/Time: 02/26/23714 Chief Complaint: Here for induction. Narrative: 37 y/o at 37 1/7 weeks here for induction of labor because of IUGR and increased umbilical artery dopplers. She has been comanaged with MFM. Transferred care to [place] at 32 4/7 weeks. A2DM vs. Type 2 DM, well controlled on NPH insulin at bedtime. Also has hypothyroidism. She has been on ASA 162 mg daily. GBS pos. Had Cervidil overnight and ampicillin overnight. Feels occasional contractions. Blood glucose has been normal. Review of Systems Review of Systems: All systems reviewed & are unremarkable except as noted in HPI and below [facility] Past Medical History Medical History (Updated 02/26/23 @ 12:36 by Niko Orellana MD) Artificial insemination 5.20.20 failed, 6.29.20 failed Chronic thoracic back pain 2015 job: [employer] tx: physical therapy MRI 05.28.15 : no significant disc abnormality,spinal stenosis or foraminal stenosis. No fracture. Cord: normal caliber,contour and signal intensity Gestational diabetes Hypothyroid Infertility, female Yris Neil M.D. [email or web address] [phone] [place], [place] Normal spontaneous vaginal delivery Polycystic ovarian syndrome Prediabetes Surgical History Surgical History [place] teeth extracted 2000 Family History Family History Grandparent Family history of malignant neoplasm of bone Family history of malignant neoplasm of breast History of blood clots Mother Family history of malignant neoplasm of breast History of blood clots Sibling Hypothyroid Heart murmur of Sibling Fibromyalgia Other Depression Hypertension Social History Social History Smoking status: Never smoker Alcohol intake: current Substance use: never Do You Feel Safe in your Home?: Yes Lack of Transportation: YES Lack of Food: Never True Current Housing: I Have Housing Concerned About Future Housing: No Difficulty Paying Gas/Electric Bills: No Difficulty Paying for Meds: No Currently Unemployed: No Education: Bachelor's Degree Difficulty w/ Childcare or Family Care: No Gender identity (if verbalized by the patient): Female Spiritual care concerns: No Meds Home Medications and Allergies Home Medications Medication Instructions Recorded Confirmed Type levothyroxine 75 mcg tablet 75 mcg PO DAILY #90 tabs 08/03/20 02/09/23 Rx vitamin no.80-sfnk-FW-dha 1 cap PO DAILY #90 caps 08/03/20 02/09/23 Rx 28 mg iron-1 mg-200 mg capsule (SCIENTIFIC SPECIALIST-PNV-DHA) blood-glucose sensor (FreeStyle #4 ea 11/23/22 02/09/23 Rx Mike 3 Sensor device) Breast Pump #1 ea 01/26/23 02/09/23 Rx aspirin 81 mg capsule 162 mg PO DAILY 01/30/23 02/09/23 History cholecalciferol (vitamin D3) 25 25 mcg PO DAILY 01/30/23 02/09/23 History mcg (1,000 unit) capsule (Vitamin D3) insulin NPH isoph U-100 human 100 15 unit subcut BID 01/30/23 02/09/23 History unit/mL (3 mL) subcutaneous pen Allergies Allergy/AdvReac Type Severity Reaction Status Date / Time chlorpheniramine AdvReac Severe severe Verified 02/09/23 13:03 [Pedia Relief] lethargy dextromethorphan AdvReac Severe severe Verified 02/09/23 13:03 [Children's Sudafed PE Cough] lethargy pseudoephedrine AdvReac Severe severe Verified 02/09/23 13:03 lethargy phenylephrine AdvReac Unknown severe Verified 02/09/23 13:03 [Children's Sudafed PE Cough] lethargy Vital Signs Vital Signs - 24 hr 02/25/23 21:06 02/25/23 21:16 02/25/23 21:31 Temperature Pulse Rate 89 76 84 Blood Pressure 136/89 133/85 128/79 Pulse Oximetry Oxygen Delivery 02/25/23 21:46 02/25/23 22:01 02/25/23 22:16 Temperature Pulse Rate 82 92 77 Blood Pressure 135
--- NOTE | 2023-02-26 12:38 | PM.OBPNLAB ---
Pain Control Date/time seen: 02/26/23 12:38 Comments: Comfortable with epidudral. Pelvic Exam Dilation (cm): 4 Effacement (%): 80 station: -2 Contractions Contraction frequency: 4 Contraction pattern: Irregular Status status: Category l Comments: Had variable decelerations, responded to position change. FHR now reactive without decelerations. Assessment and Plan Comments: Begin amnioinfusion. Continue labor.
[2023-02-26] MEDS: SODIUM CHLORIDE 0.9% IV 1,000 ML 150 ML I-UTERINE (13:24)
--- NOTE | 2023-02-26 14:00 | PC.NURSE ---
Patient checked blood glucose level at 1400 per her personal monitor. BG 88.
[2023-02-26 14:45] LABS: Rapid Plasma Reagin Non-Reactive (NonReactive)
--- NOTE | 2023-02-26 16:10 | PM.OBPRVD ---
OB - Vaginal Delivery Note Procedure Delivery date: 02/26/23 Events: Diabetes Mellitus, Intrauterine Growth Restriction (IUGR) and Positive Group B Strep (GBS) Induction method: Per Cervidil Protocol Delivery augmentation: Rupture of Membranes and Pitocin Delivery monitor: External FHT, External Uterine and Internal Uterine Route of delivery: Laceration Description: None Specimen: Yes (placenta, cord blood) Quantitative Blood Loss (ml): 80 Anesthesia type: Epidural Disposition: PACU Complications: None Narrative: 37 y/o at 37 1/7 weeks gestation who presented to the hospital for induction of labor. Cervidil was placed overnight. She was given ampicillin IV. The following morning, the Cervidil was withdrawn and oxytocin was administered intravenously. Amniotomy was performed with return of clear fluid. She received an epidural for pain control. Her labor progressed and her cervix dilated completely. She pushed with good effort and delivered the infant's head to the perineum. A loose nuchal cord was splinted and the body delivered. The cord was reduced and the nose and mouth were bulb suctioned. After a delay, the cord was clamped and cut. The was handed off the field. Cord blood was collected. The placenta delivered spontaneously and was grossly normal in appearance. The usual 3 vessel cord was noted. There were no lacerations. Needle and instrument counts were correct. The patient was taken to recovery room in stable condition. The went to the nursery in stable condition. I was present and scrubbed for the entire delivery. Maternal blood glucose was normal throughout labor and delivery. [place] Baby Date of : 02/26/23 Time of : 15:52 Weeks of gestation at delivery: 37 Infant gender: Male Weight (pounds): 4 Weight (ounces): 9 presentation: vertex position: Left Occiput Anterior Placenta delivery description: Spontaneous and Normal Configuration Cord Vessel Description: 3 Vessels, Nuchal Cord (x1) and Delayed Cord Clamping score one minute: 7 score five minutes: 9
--- NOTE | 2023-02-26 16:13 | PM.OBDSVD ---
DS: Admitting Diagnosis Discharge Date 02/28/23 Admitting Diagnosis IUP at 37 1/7 weeks GBS colonization A2DM vs. Type 2DM IUGR Increased umbilical artery doppler flow studies DS: Discharge Diagnosis Discharge Diagnosis (1) IUGR (intrauterine growth restriction): Status: Acute (2) Gestational diabetes: Code(s): O24.419 - Gestational diabetes mellitus in , unspecified control Status: Acute (3) GBS (group B Streptococcus carrier), +RV culture, currently : Code(s): O99.820 - Streptococcus B carrier state complicating Status: Acute (4) Normal spontaneous vaginal delivery: Code(s): O80 - Encounter for full-term uncomplicated delivery Status: Acute OB - DS: Summary OB Procedures : None OB Procedures Intrapartum: Spontaneous Vag Delivery OB Procedures: : None Peripartum Data Laceration Description: None Time Spent with Patient Time attestation: Total time spent providing and/or coordinating discharge services: DS: Data Data Completed and Pending Labs on day of discharge: Labs from last 24 hours 02/25/23 02/25/23 21:55 20:41 WBC 8.4 RBC 4.00 L Hgb 12.6 Hct 37.5 MCV 93.8 MCH 31.5 MCHC 33.6 RDW 13.3 Plt Count 229 MPV 10.6 H Immature Gran % (Auto) 0.4 Neut % (Auto) 63.4 Lymph % (Auto) 26.6 [place] % (Auto) 8.9 H Eos % (Auto) 0.5 Baso % (Auto) 0.2 Lymph # (Auto) 2.24 [place] # (Auto) 0.8 H Eos # (Auto) 0.0 Baso # (Auto) 0.0 Abs Immat Gran (auto) 0.03 Absolute Neuts (auto) 5.4 Absolute Nucleated RBC 0.0 Nucleated RBC % 0.0 POC Capillary Glucose 120 H RPR Non-reactive Hep Bs Antigen Negative HIV 1&2 Ab/P24 Ag 4thGn Negative Rubella IgG Antibody > 110.0 Blood Type O Positive Antibody Screen Negative Discharge Plan Discharge Attending physician on discharge: Niko Orellana Discharging Clinician: Niko Orellana Patient Disposition: Home, Self-Care Activity: pelvic rest Diet: diabetic Discharge Instructions: Call or return if temperature above 100.4? F, increased abdominal pain, increased vaginal bleeding or any new problems. Stand Alone Forms: General Discharge Information Follow-up/Referrals: Niko Orellana MD [Physician] - 6 Weeks Discharge Medications: New ibuprofen 600 mg tablet 600 mg PO Q6H PRN (Reason: cramps) Qty: 30 0RF metformin 500 mg tablet 500 mg PO BID Qty: 60 1RF Continued DIRECTOR OF RESTAURANT-PNV-DHA 28 mg iron- 1 mg-200 mg capsule 1 cap PO DAILY Qty: 90 1RF levothyroxine 75 mcg tablet 75 mcg PO DAILY Qty: 90 1RF cholecalciferol (vitamin D3) [Vitamin D3] 25 mcg (1,000 unit) Capsule 25 mcg PO DAILY (DME) FreeStyle Mike 3 Sensor Device See Rx Instructions .Route Qty: 4 3RF Rx Instructions: As directed change q 2 weeks (DME) Breast Pump See Rx Instructions .Route .MEDSUPPLY Qty: 1 0RF Rx Instructions: Double breast ,electric pump Discontinued insulin NPH isoph U-100 human 100 unit/mL (3 mL) Insulin Pen 15 unit SUBCUT BID aspirin 81 mg Capsule 162 mg PO DAILY Date of admission: 02/25/23 19:51 Primary Care Provider: Camryn Hale Admitting Provider: Niko Orellana Attending physician on admission: Niko Orellana Condition: Stable
[2023-02-26] MEDS: OXYTOCIN 30 UNITS/NS 500 ML 30 UNITS/500 ML BAG 125 UNITS IV CONT (16:20)
--- NOTE | 2023-02-26 16:26 | PC.NURSE ---
Patient checked blood glucose level at 1550 per her personal monitor. BG 74.
[2023-02-26] MEDS: ACETAMINOPHEN 325 MG TABLET 650 MG PO (16:34)
[2023-02-26] MEDS: IBUPROFEN 600 MG TABLET PO (20:50)
[2023-02-27] MEDS: IBUPROFEN 600 MG TABLET PO ×4 (03:11→23:42)
[2023-02-27 04:11] LABS: Hemoglobin 12.4 g/dL (12.0-15.0)
--- NOTE | 2023-02-27 07:30 | PC.NURSE ---
PT introductions made and plan of care discussed per post , pain management, breast feeding, pumping, bottle feeding due to late , and daily care activities. PT and spouse both recipients of such instructions and no barriers to learning identified at this time. Pt received such instructions per one to one discussion, mom baby care guide and demonstrations this shift. PT verbalized understanding of such care.
[2023-02-27 08:30] VITALS: BP 137/72; PULSE 87; RESP 18; TEMP 36.6; O2SAT 99
[2023-02-27 10:00] VITALS: PULSE 101; RESP 16; O2SAT 99
[2023-02-27] MEDS: metFORMIN HCL 500 MG TABLET PO ×2 (10:00→17:32)
[2023-02-27] MEDS: ACETAMINOPHEN 325 MG TABLET 650 MG PO ×2 (10:38→17:33)
[2023-02-27] MEDS: CHOLECALCIFEROL 1,000 UNITS TABLET 1000 UNITS PO (10:40)
[2023-02-27] MEDS: MULTIVIT/MIN/PREN/FOL AC/IRON TABLET 1 TAB PO (10:41)
[2023-02-27] MEDS: DOCUSATE SODIUM 100 MG CAPSULE PO ×2 (10:41→17:34)
[2023-02-27] MEDS: LANOLIN (LANSINOH) 7.5 GM CREAM 1 APPLIC TOPICAL (10:42)
--- NOTE | 2023-02-27 10:52 | WPDANLDPN2 ---
Anes-Prog Note L&D Date/Time: 02/27/23 10:52 Comfortable throughout: labor and delivery Neuraxial method: epidural Epidural/Spinal procedure site: clean & non-tender Neuro status: Neuro function grossly intact. Cardiovascular status: normal Respiratory status: normal Airway patency: baseline Mental status: baseline Post-Op hydration status: normal Vital Signs: Last Vital Signs Temp 98 F 02/27/23 08:30 Pulse 87 02/27/23 08:30 Resp 18 02/27/23 08:30 BP 137/72 02/27/23 08:30 Pulse Ox 99 02/27/23 08:30 O2 Del Method Room Air 02/26/23 06:15 Pain score (VAS): 0/10 I/O: Intake & Output 02/26/23 02/27/23 02/27/23 23:59 07:59 15:59 Output Total 80 Balance -80 Post-procedural complaints: none Patient feedback: Patient satisfied with anesthetic care.
--- NOTE | 2023-02-27 11:31 | PM.OBPNVD ---
OB - PN: Subj Subjective Date/time seen: 02/27/23 11:31 Narrative: Pain OK. She does not want circumcision for her son. OB - PN: Obj Data Labs 02/27/23 04:03 Labs: Laboratory Results - last 24 hr 02/25/23 02/27/23 20:41 04:03 Hgb 12.4 Hct 36.0 L RPR Non-reactive OB - PN A/P Plan Comments: A: PPD#1, doing well. A2DM vs. T2DM. P: Resume metformin 500 mg po bid. Otherwise, routine care. Exam Psych: Other: AVSS ABD soft, nontender, fundus firm EXT nontender Her glucose monitor shows glc 180-210.
[2023-02-27 12:20] VITALS: BP 125/89; PULSE 101; RESP 16; TEMP 36.8; O2SAT 99
[2023-02-27 20:42] VITALS: BP 129/82; PULSE 105; RESP 16; TEMP 37.5
[2023-02-27] MEDS: LEVOTHYROXINE SODIUM 75 MCG TABLET PO (21:05)
--- NOTE | 2023-02-28 09:28 | PM.OBPNVD ---
OB - PN: Subj Subjective Date/time seen: 02/28/23 09:28 Narrative: Pain OK. Would like to go home. OB - PN: Obj Data Labs 02/27/23 04:03 OB - PN A/P Plan Comments: A: PPD#2, doing well. P: Home to f/u 6 weeks. Exam Psych: Other: AVSS ABD soft, nontender, fundus firm EXT nontender
[2023-02-28] MEDS: MULTIVIT/MIN/PREN/FOL AC/IRON TABLET 1 TAB PO (10:55)
[2023-02-28] MEDS: metFORMIN HCL 500 MG TABLET PO (10:55)
[2023-02-28] MEDS: CHOLECALCIFEROL 1,000 UNITS TABLET 1000 UNITS PO (10:55)
[2023-02-28] MEDS: IBUPROFEN 600 MG TABLET PO (10:55)
[2023-02-28 11:00] VITALS: BP 130/88; PULSE 72; RESP 16; TEMP 37; O2SAT 99
[2023-03-03 14:36] VITALS: BP 132/85; PULSE 87; RESP 20; TEMP 36.8; O2SAT 100
== END 2023-02-28 14:45 | disposition home or self-care (01) | DRG 807 ==
LOC: ANHLDR 02-26 16:15 → ANHOB2 02-26 20:16
PROVIDERS: Admitting Provider Obstetrics & Gynecology; PCP Family Medicine; Visit Provider Obstetrics & Gynecology
DX: O36.5930 Maternal care for other known or suspected poor fetal growth, third trimester, not applicable or unspecified (principal); Z37.0 Single live birth; Z3A.37 37 weeks gestation of pregnancy; O24.424 Gestational diabetes mellitus in childbirth, insulin controlled; O99.824 Streptococcus B carrier state complicating childbirth; O69.81X0 Labor and delivery complicated by cord around neck, without compression, not applicable or unspecified; O99.284 Endocrine, nutritional and metabolic diseases complicating childbirth; E03.9 Hypothyroidism, unspecified
CPT/HCPCS: 36415; 82948; 85014; 85018; 85025; 86592; 86703; 86762; 86850; 86900; 86901; 87340; 88307; A9270; G0432; J0290; J1815; J2371; J2590; J2795; J7030; J7120

== ENCOUNTER 2024-12-21 12:27 | Outpatient (CLI) | payer OTHER, SELFPAY ==
--- NOTE | ~2024-12-21 | US_ITS ---
EXAMINATION: US pelvic complete w TV DATE: 12/21/2024 13:33 INDICATION: Abnormal vaginal bleeding. TECHNIQUE: Multiple transabdominal and transvaginal sonographic images of the pelvis were obtained. COMPARISON: None. FINDINGS: TRANSABDOMINAL ULTRASOUND: The uterus measures 7.1 x 4.0 x 4.17 m. There is no free fluid in the pelvis. TRANSVAGINAL ULTRASOUND: The endometrial complex measures 3 mm in thickness. There is an intrauterine device in expected position. The right ovary measures 2.7 x 1.7 x 3.2 cm. The left ovary measures 2.7 x 1.9 x 1.8 cm. There is normal vascular flow in the ovaries. IMPRESSION: 1. Intrauterine device in expected position. Reviewed, dictated and finalized at location E.
--- OUTSIDE RECORDS SUMMARY | 2024-12-21 14:07 | XMS_ITS | Clinical Summary ---
Author Organization [facility] [employer] Address [address] [place] [address] Care Team Providers Care Buck Swamper Name Role Phone César Hale MD Primary Care Provider [phone] Source Comments [facility] [facility],non-owned Affiliates and Associated Physician Practices is amultiple site organization consisting of ambulatory clinics and hospital sitesin [place], [place], [place] and [place]. This disclosure is being madepursuant to the Care Everywhere program and may not contain all information available regarding this patient. Last updated 17.[facility] Allergies Active Allergy Reactions Criticality Noted Date Comments Dextromethorphan Unknown 03/13/2020 Severe lethargy per patient Other reaction(s): Unknown Severe lethargy per patient Pseudoephedrine Base Other Low 12/27/2016 Lethargy Other reaction(s): Unconsciousness Other reaction(s): Other Lethargy Medications * Be aware that medications may not be up to date on this document. Alwaysverify current medications with the patient. Vit-Fe Fumarate-FA ( VITAMIN) 28-0.8 MG tabletIndicatio ns: Take 1 (one) tablet by mouth once daily Reasons: Active levothyroxine (SYNTHROID) 75 MCG tabletIndicatio ns:Hypothyroidi sm Take 1 (one) tablet by mouth daily before breakfast Reasons: Underactive Thyroid Active INSULIN SYRINGE/NEEDLE U-500 31G X 6MM 0.5 ML (BD INSULIN SYRINGE U-500) 31G X 6MM 0.5 ML MISC Use 1 Each once daily 1 Each 3 03/19/19 21 Active aspirin (Aspirin) 81 MG chew tablet Take 1 (one) tablet by mouth once daily Activ e vitamin D3 (Cholecalcifero l) 25 MCG (1000 UNITS) tablet Take 1 (one) tablet by mouth once daily Activ e Blood Glucose Monitoring Suppl (Blood Glucose Monitor System) w/Device KITIndications: Insulin controlled gestational diabetes mellitus (GDM) in third trimester ([facility]) Use as directed to test blood glucose 4 times per day 1 Each 02/04/20 Active insulin NPH (HumuLIN N KWIKPEN) penIndications: Insulin controlled gestational diabetes mellitus (GDM) in third trimester ([facility]) Inject 16 (sixteen) Units subcutaneously at bedtime 3 mL 1 02/18/20 Active Additional Information Patient taking differently: 15 UnitsSubcutaneous AT BEDTIME, Reported on 02/24/2023 Insulin Pen Needle 32G X 4 MM MISCIndications :Insulin controlled gestational diabetes mellitus (GDM) in third trimester ([facility]) Use 1 Each once daily 100 Each 1 02/18/20 Active Glucagon (Baqsimi One Pack) 3 MG/DOSE POWDIndications :Insulin controlled gestational diabetes mellitus (GDM) in third trimester ([facility]) [place] 1 Each into the nose as needed 1 Each 1 02/18/20 Active Additional Information Patient not taking.Reported on 02/24/2023 Continuous Blood Gluc Sensor (FreeStyle Mike 3 Sensor) MISCIndications :Insulin controlled gestational diabetes mellitus (GDM) in third trimester ([facility]) Use 1 Each continuous 2 Each 1 02/18/20 Active Active Problems Problem Noted Date Diagnosed Date Supervision of high-risk 02/03/2023 Polycystic ovary syndrome 02/03/20232022 Insulin controlled gestation al diabetes mellitus (GDM) in third trimester 03/13/2020 Overview (06/06/2020): 12/26/20: FBS 114.8; 1hr 183.7; 2hr 125.3; 3hr 153.8 Assessment & Plan (06/27/2020 12:27 PM CDT): Glucose log review mostly within goal. Compliant with insulin regimen. AGA growth 2 weeks ago. Reassuring NST today. Completing testing with primary Senior Sales Administrator otherwise. Maternal Medicine recommendations: 1. 4 times daily blood sugars and glucose logs, weekly communication with CDE. 2. I again reviewed treatment of hypoglycemia, after hours triage number at [facility] also reviewed. Discussed at this stage of the persistent hypoglycemia or pattern of hypoglycemia should be brought to her Senior Sales Administrator or our attention. 3. Praised her commitment to dietary changes and exercise. 4. Continue insulin regimen as Lantus 10 units at night, Novolog 4 units with breakfast. Continue metformin as currently prescribed. 5. Twice weekly testing to continue with primary OB. 6. Encouraged kick counts twice daily, seek OB evaluation with decreased movement. 7. Detailed discussion of preeclampsia warnings again today. 8. Serial growth every 4 weeks with last assessment at 38 weeks for mode of delivery 9. Delivery initiation between 39-40 weeks, scheduled for 07/09. 10. encouraged in detail today. 11. Diabetes testing 4-5 weeks after delivery with review at 6 week visit. Discussed need for annual visit with primary care provider given lifetime increase of T2DM. Assessment & Plan (06/06/2020 10:51 AM CDT): Glucose log review mostly within goal. Few fasting hyperglycemic values. Compliant with insulin regimen. AGA growth 3 weeks ago. Reassuring NST today. Completing testing with primary Senior Sales Administrator otherwise. Ketones in urine today cleared with hydration. Maternal Medicine recommendations: 1. 4 times daily blood sugars and glucose logs, weekly communication with CDE. 2. Reviewed treatment of hypoglycemia again today and to always keep glucagon with her. After hours triage number at [facility] also reviewed. 3. Praised her commitment to dietary changes and exercise. 4. Continue insulin regimen as Levemir 10 units at night, Novolog 4 units with breakfast. Continue metformin as currently prescribed. 5. Twice weekly testing to continue with primary OB. 6. Encouraged kick counts twice daily, seek OB evaluation with decreased movement. 7. Detailed discussion of preeclampsia warnings again today. 8. Serial growth every 4 weeks with last assessment at 38 weeks for mode of delivery 9. Delivery initiation between 39-40 weeks. 10. 11. Diabetes testing 4-5 weeks after delivery with review at 6 week visit. Assessment & Plan (05/16/2020 5:07 PM PLANT RELIABILITY ENGINEER): Glucose log review mostly within goal. Few fasting hyperglycemic values. Last week moved Levemir to 2100 dosing from 1999 and notes decrease in lows at bedtime, and midnight. AGA growth today, see formal, separate ultrasound report. Maternal Medicine recommendations: 1. 4 times daily blood sugars and glucose logs, weekly communication with CDE. 2. Reviewed treatment of hypoglycemia and to always keep glucagon with her. After hours triage number at [facility] also reviewed. 3. Continue insulin regimen as Levemir 8 units at night, increase to 10 units if next two consecutive fasting results are >90. Continue metformin as currently prescribed. 4. Twice weekly testing to begin next week per Dr. Sotomayor today, patient reports completing with her primary Senior Sales Administrator next week. 5. Encouraged kick counts twice daily, seek OB evaluation with decreased movement. 6. Detailed discussion of preeclampsia warnings today. 7. Serial growth every 4 weeks with last assessment at 38 weeks for mode of delivery 8. Delivery initiation between 39-40 weeks 9. 10. Diabetes testing 4-5 weeks after delivery with review at 6 week visit Assessment & Plan (04/11/2020 11:39 AM PLANT RELIABILITY ENGINEER): Risk factor for gestational diabetes appears to be polycystic ovarian syndrome an overweight body habitus. GDMA1 I counseled Dana Hale regarding the adverse outcomes associated with inadequately controlled diabetes in . These complications include overgrowth with the associated risk of labor and shoulder dystocia, delivery, preeclampsia, hypoglycemia, stillbirth, and her child's risk of metabolic disease in later life secondary to programming of adult disease. Adequate management of the disease will minimize these risks. We discussed the dramatic increase in insulin resistance that occurs in the second half of and I outlined a plan for ongoing management. We reviewed the target glucose ranges to minimize excessive growth and optimize outcomes. These are: Fasting 60-90 mg/dl; preprandial 60-105 mg/dl; and 1-hour postprandial < 130 mg/dl. Currently glycemic control appears to be managed with diet and exercise. A) Antepartum testing. Recommend daily kick counts--explained. Twice weekly NST from 36 weeks until delivery. Serial Ultrasound assessment of growth every 3-4 weeks is recommended, with a reassessment between 37-38 weeks for mode of delivery planning. B.) Timing of Delivery. If spontaneous delivery has not occurred, delivery may be planned 40 completed weeks. If complications, such as preeclampsia, macrosomia or poor glucose control develop, then delivery plans may need to be revised. C) Route of delivery. Vaginal delivery may be anticipated unless the fetus is excessively large or there is an abnormal presentation. Diabetes is associated with about a six-fold risk for shoulder dystocia. Operative vaginal deliveries should be approached with caution. We also discussed the limitations of ultrasound for estimating weight at term, with estimated weights deviating by up to 1 lb in either direction from birthweights. I advised Dana that the [employer] recommends delivery for fetuses with estimated weight of 4500 grams or greater in diabetic mothers. D) Glucose control in labor. During labor, capillary glucose values should be checked every 1-2 hours (depending on their stability). Maintenance fluids with 5% dextrose are infused to prevent starvation ketosis. If the glucose values exceed 110 mg/dl, an insulin infusion is recommended. E) Long-term diabetes surveillance. The risk of Dana Hale developing diabetes outside of over the next five years may be as high as 50%. I recommend that she have a fasting plasma glucose or 2hr GTT at 4 weeks and discussion of the results at her 6 week visit. If her testing is normal, annual glucose screening by her primary care physician is advised. Maternal Medicine recommendations: 1. 4 times daily blood sugars and glucose logs 2. Twice weekly nonstress tests starting at 36 weeks 3. Serial growth every 4 weeks with last assessment at 38 weeks for mode of delivery 4. Delivery initiation between 39-40 weeks 5. 6. Diabetes testing 4-5 weeks after delivery with review at 6 week visit Hypothyroidism 03/13/2020 Assessment & Plan (06/27/2020 12:31 PM CDT): Management per primary Senior Sales Administrator. Dana reports her thyroid function was just assessed with primary OB and she will review the results today. She continues levothyroxine as prescribed. Assessment & Plan (06/06/2020 10:51 AM CDT): Management per primary Senior Sales Administrator. Assessment & Plan (05/16/2020 1:22 PM PLANT RELIABILITY ENGINEER): Management per primary Senior Sales Administrator. Assessment & Plan (04/11/2020 11:34 AM PLANT RELIABILITY ENGINEER): Being managed by OB Mixed hyperlipidemia 11/12/2018 02/03/2023 Resolved Problems Problem Noted Date Diagnosed Date Resolved Date Supervision of normal first 03/13/2020 02/03/2023 Overview (03/13/2020): Hx PCOS, by artificial insemination. Labs: 12/2019 O+, Negative, Immune, Rpr-NR, Hbsag-NR, Hep C-Neg, HIV-? Seq screen: Negative Assessment & Plan (04/11/2020 11:47 AM PLANT RELIABILITY ENGINEER): Dana asked me about the COVID-19 vaccines. I discussed that this is an ongoing topic that may have new revelations over time. The current recommendations from expert Senior Sales Administrator is to advocate for women who are prioritized as as being at high risk of sydnee COVID-19 to not be denied access to vaccination if they are or nursing. In other words, if a woman perceives the risk to themselves of COVID-19 as being significant, while understanding the unknown potential for harm to the exposed child, then that woman should be allowed to make a decision for herself about vaccination. We discussed that and women nursing mothers are considered special populations and are generally excluded from clinical trials involving new therapies. As such, there is no safety information available in human studies for the current novel COVID-19 vaccines in and nursing women. I also voiced that many vaccines are in the works and that there may be a vaccine that is available for administration that has a more familiar safety profile and may be considered for the general /nursing population. We discussed the importance of good hygiene practices, such as: wearing a mask, hands sanitizing as necessary and social distance dating. We also discussed options for increased immune support. Immunizations Immunization Administration Dates Next Due Covid Manas Informatic primary monoval ent 12+ yr 0.3mL Purple cap 03/02/2021 FLU VACCINE QUAD IIV4 PF ID 01/25/2021 HEP B VACCINE, ADULT 3 DOSE 04/02/2005, 5,11/01/2004 INFLUENZA VACCINE, QUADR. (F LUZONE; FLULAVAL; FLUARIX; AFLURIA QUADRIVALENT; 6MO+), 0.5 ML (IIV4) 01/08/2023,01/25/2021,12/28/2019,01/05,01/08/2018,08/30/2007 MENINGOCOCCAL ACWY (MCV4P) VAC IM 08/25/2007 MMR 11/01/2004 POLIO IPV 12/14/1991, 0,01/07/1988,11/08,1987 TDAP (7yrs+) 12/30/2022, 8,12/14/1991,09/03,01/07/1988,1987,1987 VARICELLA 04/02/2005,12/04/2004 Family History Medical History Relation Name Comments Hypertension Father Cancer - Breast Maternal Grandmother Cancer - Other Maternal Grandmother Bone cancer Hypertension Mother CVA Paternal Grandmother Thyroid Disease Sister Relation Name Status Comments Father Maternal Grandmother Mother Paternal Grandmother Sister Social History Tobacco Use Types Packs/Day Years Used Date Smoking Tobacco: Never Smokeless Tobacco: Never Alcohol Use Standard Drinks/Week Comments Not Currently 0 (1 standard drink = 0.6 oz pur e alcohol) Overall Financial Resource Strain (CARDIA) Answe r Date Recorded How hard is it for you to pa y for the very basics like food, housing, medical care, and heating? Not hard at all 02/03/2023 [facility] [place] [facility] - Occupational Stress Questionnaire Answer Date Recorded Do you feel stress - tense, restless, nervous, or anxious, or unable to sleep at night because your mind is troubled all the time - these days? Only a little 02/03/2023 Hunger Vital Sign Answer Date Recorded Within the past 12 months, y ou worried that your food would run out before you got the money to buy more. Never true 02/04/20 23 Within the past 12 months, t he food you bought just didn't last and you didn't have money to get more. Never true 02/03/2023 PRAPARE - Transportation Answer Date Re corded In the past 12 months, has l ack of transportation kept you from medical appointments or from getting medications? No 01/08 In the past 12 months, has l ack of transportation kept you from meetings, work, or from getting things needed for daily living? No 02/03/2023 Housing Stability Vital Sign Answer Samson e Recorded In the last 12 months, was t here a time when you were not able to pay the mortgage or rent on time? No 02/03/2023 [address] of Places Lived in the Last Year Not on f ile 02/03/2023 In the last 12 months, was t here a time when you did not have a steady place to sleep or slept in a long-term (including now)? No 02/03/2023 [place] Depression Scale Answer Date Recorded [place] Depression Scale Total 10 02/03/2023 The thought of harming myself has occurred to me . Never 02/03/2023 Comments No Sex and Gender Information Value Date Recorded Sex Assigned at Not on file Legal Sex Female 2:12 PM CDT Gender Identity Not on file Sexual Orientation Not on file Occupation Industry Job Start Date Job End Date Volunteering Not on file Not on file Not on file Last Filed Vital Signs Vital Sign Reading Time Taken Comments Blood Pressure 124/83 02/24/2023 2:08 PM PLANT RELIABILITY ENGINEER Pulse 90 02/24/2023 1:05 PM PLANT RELIABILITY ENGINEER Temperature 36.2 C (97.2 F) 06/27/2020 9:57 AM CDT Respiratory Rate 16 02/10/2023 1:20 PM PLANT RELIABILITY ENGINEER Oxygen Saturation - - Inhaled Oxygen Concentration - - Weight 87.1 kg (192 lb) 02/24/2023 1:00 PM PLANT RELIABILITY ENGINEER Height 162.6 cm (5' 4) 02/03/2023 2:05 PM PLANT RELIABILITY ENGINEER Body Mass Index 32.96 02/03/2023 2:05 PM PLANT RELIABILITY ENGINEER Plan of Treatment Health Maintenance Due Date Last Done Comments HIV SCREENING 07/03/2002 HEPATITIS C SCREENING 06/29/2005 PAP SMEAR 07/03/2008 HPV VACCINE (1 - 3-dose SCDM series) 07/03/2014 DEPRESSION SCREENING 03/09/2024 COVID-19 VACCINE ( season) 2024 12/12/2021, 03/02/2021, 02/14/2021, Additional history exists INFLUENZA VACCINE (#1) 2024 , 01/25/2021, 01/25/2021, Additional history exists DTAP/TDAP/TD VACCINES (3 - Td or Tdap) 12/30/2032 12/30/2022, 04/02/2017, 12/14/1991, Additional history exists ZOSTER VACCINE (1 of 2) 07/03/2037 HEPATITIS B VACCINE Completed 04/02/2005, 12/04/2004, 11/01/2004 MENINGOCOCCAL GROUPS A/C/Y/W VACCINE Aged Out 08/25/2007 No longer eligible based on patient's age to complete this topic HIB VACCINE Aged Out No longer eligi ble based on patient's age to complete this topic MENINGOCOCCAL (Group B) VACCINE SHARED DECISION-MAKING Aged Out No longer eligible based on patient's age to complete this topic PNEUMOCOCCAL VACCINE Aged Out No long er eligible based on patient's age to complete this topic Insurance [employer] SELF PAY NO INSURANCE Member Subscriber Plan / Payer (Ef fective for All Dates) Name:Dana Hale Member ID:Not on file Relation to Subscriber:Not on file Name:DANA HALE Subscriber ID:Not on file Address: [address] [place] [address] Payer ID:Not on file Group ID:Not on file Type:Self Pay Address: [place], [place] SELF PAY NO INSURANCE Member Subscriber Plan / Payer (Ef fective for All Dates) Name:Dana Hale Member ID:Not on file Relation to Subscriber:Not on file Name:DANA HALE Subscriber ID:Not on file Address: [address] [place] [id number] Payer ID:Not on file Group ID:Not on file Type:Self Pay Address: [place], [place] Care Teams Buck Swamper Relationship Specialty Start Date End Date Cés[place] [address] [place] [id number] PCP - General Family Medicine 12/27/16
--- OUTSIDE RECORDS SUMMARY | 2024-12-21 14:08 | XMS_ITS | Patient Health Record ---
Author Organization [facility] Billing Info Address [address] [place], [place] [id number] Support Name Relationship Address Phone César Hale Emergency Contact [address] [place] [address] Dana Hale Guarantor Unknown [phone] Allergies Allergen (clinical drug ingredient) Drug/Non Drug Allergy documented on EMR Reaction Allergy Type Onset Date Status pseudoephedrine Pseudoephedrine Unknown Drug Allergy Active Reason For Referral No Information Medications Medication SIG (Take, Route, Frequency, Duration) Notes Start Date End Date Status HumuLIN N KwikPen 100 UNIT/ML 18 units Subcutaneous Daily at bedtime for 30 days DEA MCKEON 10/17/2022 01:23:49 PM CDT > Verbal order per provider, read back & confirmed DEA MCKEON 10/23/2022 11:48:02 AM CDT > Verbal order per provider, read back & confirmed 10/17/2022 Active Levothyroxine Sodium 75 MCG 1 tablet in the morning on an empty stomach Orally Once a day Active MetFORMIN HCl ER 500 MG 3 tabs with evening meal Orally Once a day for 30 days DEA MCKEON 10/17/2022 01:24:53 PM CDT > Verbal order per provider, read back & confirmed Active 28-0.8 MG 1 tablet Orally Once a day Active Vitamin D 500units Active BD Lancet Ultrafine 30G - Check blood sugar fasting in the morning and 2 hours after breakfast, lunch and dinner Subcutaneously Four times a day for 30 days DEA MCKEON 01/07/2023 02:36:50 PM CDT > Verbal order per provider, read back & confirmed 01/07/2023 Active BD Pen Needle June 2nd Gen 32G X 4 MM as directed Subcutaneously Daily at bedtime for 100 days DEA MCKEON 10/17/2022 01:24:26 PM CDT > Verbal order per provider, read back & confirmed 10/17/2022 Active Blood Glucose Monitor System w/Device test blood sugar as directed As directed Four times a day for 30 days DEA MCKEON 01/07/2023 02:37:12 PM CDT > Verbal order per provider, read back & confirmed 01/07/2023 Active Blood Glucose Test - test blood sugar fasting in the morning and 2 hours after breakfast, lunch and dinner In Vitro Four times a day for 25 days LINDA DEA 01/07/2023 02:38:30 PM CDT > Verbal order per provider, read back & confirmed 01/07/2023 Active Blood Glucose Test Strip N/A test blood sugar fasting in the morning and 2 hours after breakfast, lunch and dinner N/A Four times a day for 25 days LINDA DEA 01/07/2023 02:37:25 PM CDT > Verbal order per provider, read back & confirmed 01/07/2023 Active FreeStyle Mike 2 Sensor - as directed apply sensor to skin Change every 14 days for 28 days LINDA DEA 09/17/2022 11:43:43 AM CDT > Verbal order per provider, read back & confirmed 09/17/2022 Active FreeStyle Mike 3 Sensor - Apply to upper arm As directed change sensor every 14 days for 28 days LINDA DEA 09/30/2022 03:00:12 PM CDT > Verbal order per provider, read back & confirmed 09/30/2022 Active Social History Tobacco Use: Social History Observation Description Date Details (start date - stop date) Never Smoker NA - NA Tobacco Status: Question Answer Notes Patient is a never smoker Problems Problem Type SNOMED Code ICD Code Onset Dates Problem Status W/U Status Risk Notes Problem 659636452 Blood type O+ (Z67.40) Active confirmed Problem 842517761 Antepartum multigravida of advanced maternal age (O09.529) Active confirmed Problem 30977682 Insulin controlled gestational diabetes mellitus (GDM) in third trimester (O24.414) Active confirmed Problem 39626765 Gestational diabetes mellitus (GDM) in third trimester controlled on oral hypoglycemic drug (O24.415) Active confirmed Plan Of Treatment No Information Insurance Providers Payer Name Payer Address Payer Phone Subscriber Number Group Number Insured Name Patient Relationship to Insured Coverage Start Date Coverage End Date [facility] [address] [place] [id number] [phone] [id number] Dana Hale Self - patient is the insured 3 3 Medical (General) History Medical History History ICD Code Hypothyroidism Polycystic ovary syndrome Hx GDM with prior Panic attacks with needles Blood type O positive IUI Surgical History Surgery Date(Month/Year) Molar Extracted wisdom teeth removal Hospitalization History Reason Date(Month/Year) childbirth
== END 2024-12-21 12:28 | disposition home or self-care (01) ==
PROVIDERS: PCP Family Medicine; Visit Provider Family Medicine
DX: N93.8 Other specified abnormal uterine and vaginal bleeding (principal); Z97.5 Presence of (intrauterine) contraceptive device
CPT/HCPCS: 76830; 76856